=== PATIENT | male | born 1995 | race Caucasian/White ===

== ENCOUNTER 2021-11-02 15:31 | Emergency (ER) | payer OTHER, SELFPAY ==
[2021-11-02] VITALS (10 sets, daily range): BP systolic 118–140; BP diastolic 63–91; PULSE 74–89; RESP 11–28; TEMP 36.8; O2SAT 99–100
[2021-11-02 16:17] LABS: Basophils Absolute Auto 0.1 K/mm3 (0.0-0.1); Basophils Percent Auto 0.5 % (0.2-1.2); Eosinophils Absolute Auto 0.1 K/mm3 (0-0.3); Eosinophils Percent Auto 0.9 % (0-4.4); Hematocrit 46.2 % (42.0-52.0); Hemoglobin 15.9 g/dL (14.0-18.0); Immature Granulocyte Absolute 0.06 K/mm3 (0.00-0.031); Immature Granulocyte Percent A 0.4 % (0-0.5); Lymphocytes Absolute Auto 1.65 K/mm3 (0.9-3.2); Lymphocytes Percent Auto 11.4 % (18.3-44.2); Mean Corpuscular HGB Conc 34.4 g/dl (32-36); Mean Corpuscular Hemoglobin 30.9 pg (26-34); Mean Corpuscular Volume 89.7 fl (80-100); Monocytes Absolute Auto 0.9 K/mm3 (0.1-0.6); Neutrophils Absolute Auto 11.6 K/mm3 (1.3-6.7); Neutrophils Percent Auto 80.8 % (45.5-73.1); Platelet Count Result 214 k/mm3 (150-375); Red Blood Count 5.15 M/mm3 (4.6-6.20); Red Cell Distribution Width 12.2 % (11.5-14.5); White Blood Count 14.4 K/mm3 (4.5-10.0)
[2021-11-02 16:28] LABS: Alanine Aminotransferase 15 U/L (6-50); Albumin Level 4.8 g/dL (3.5-5.1); Alkaline Phosphatase 103 U/L (38-126); Anion Gap 8 mmol/L (8-16); Aspartate Amino Transferase 20 U/L (17-59); Bilirubin,Total 0.6 mg/dL (0.2-1.3); Blood Urea Nitrogen 13 mg/dL (9-20); Calcium 9.1 mg/dL (8.4-10.2); Carbon Dioxide 22 mmol/L (22-30); Chloride 106 mmol/L (98-107); Creatine Kinase 87 U/L (55-170); Estimated CRCL calculation 108 ml/min; Estimated Glomerular Filt Rate > 60; Glucose 97 mg/dL (65-110); Potassium 3.2 mmol/L (3.4-5.0); Sodium 136 mmol/L (137-145)
--- NOTE | 2021-11-02 17:00 | ED.GENADULT ---
HPI - General Adult General Chief complaint: Environmental Exposure Stated complaint: Heat Exhaustion Time Seen by Provider: 11/02/21 16:58 Source: patient Mode of arrival: EMS Limitations: no limitations History of Present Illness HPI narrative: Patient is a 25-year-old male who presents the ED, via EMS with report of heat exhaustion. Patient reports that he began working outside in the sun today around 7 AM. He was up on scaffolding doing work. He does report he drank around 4 bottles of water throughout the day but felt like he was not prepared to be out in the sun that long. Today's temperatures were greater than 90 ?F. Around 2:30 PM, he began to feel tingling in his hands with patient's muscle cramping. He also reported having diaphoresis, dizziness, and weakness at that time. He states his coworkers made him drink a bunch of water at once when he began feeling sick and he did vomit the water back up. He denied having any nausea or any episodes of vomiting since then. He did have a mild headache after vomiting but denies any currently. EMS was called who initiated IV fluids in route and placed ice on patient's back. Upon my evaluation, patient is feeling much better. He states he was able to rest in the ED and did take a small nap. He denies any symptoms currently. He has felt well over the past several days and denies any recent fever, cough, cold symptoms, abdominal pain, urinary symptoms. Related Data Allergies Allergy/AdvReac Type Severity Reaction Status Date / Time No Known Allergies Allergy Verified 11/02/21 15:35 Review of Systems Review of Systems: CONSTITUTIONAL: Reports diaphoresis. Denies fever. ENT: Denies rhinorrhea, congestion, sore throat. CARDIOVASCULAR: Denies chest pain. RESPIRATORY: Denies cough or dyspnea. GASTROINTESTINAL: Reports vomiting. Denies abdominal pain, nausea, or diarrhea. GENITOURINARY: Denies dysuria or hematuria. MUSCULOSKELETAL: Reports muscle cramping. Denies back pain. NEUROLOGIC: Reports dizziness, weakness, tingling in hands, SCHAEFER (all resolved). All systems reviewed & are unremarkable except as noted in HPI and below PMFSH Past Medical History Medical History (Updated 11/02/21 @ 17:36 by Micki Lobato PA-C) No pertinent past medical history Surgical History Surgical History (Updated 11/02/21 @ 17:27 by Micki Lobato PA-C) No pertinent past surgical history Social History Social History (Updated 11/02/21 @ 17:27 by Micki Lobato PA-C) Smoking status: Current every day smoker Substance use type: marijuana Exam Narrative: GENERAL: Well appearing, well-nourished, non-toxic, in no acute distress. HEAD: Normocephalic, atraumatic. EYES: PERRL/EOMI, conjunctivae clear bilaterally. THROAT: Pharynx normal, no erythema or exudate. MM moist. NECK: Supple. No adenopathy, no masses. RESPIRATORY: Airway patent, respirations nonlabored. Clear to auscultation bilaterally, no rales, rhonchi, wheezing. CARDIOVASCULAR: Regular rate and rhythm without murmurs, rubs, or gallops. Radial pulses 2+ and equal bilaterally. ABDOMINAL: Soft, no tenderness to palpation in any quadrants, nondistended, no hepatosplenomegaly. Normoactive BS. MUSCULOSKELETAL: Moves all extremities. Strength/ROM intact without gross deformities or TTP. No edema. No calf tenderness. SKIN: Warm, dry, superficial 1st degree sun burn to posterior neck and bilateral facial cheeks. NEURO: A&O X3. Speech clear. Cranial nerves II-XII grossly intact. Steady gait. No ataxic movements. PSYCHIATRIC: Appropriate mood and affect. Normal interaction. Course Vital Signs Vital signs: Vital Signs Temperature 98.2 F 11/02/21 15:31 Pulse Rate 86 11/02/21 15:31 Respiratory Rate 16 11/02/21 15:31 Blood Pressure 128/67 11/02/21 15:31 Pulse Oximetry 100 11/02/21 15:31 Temperature 98.2 F 11/02/21 15:31 Pulse Rate 74 11/02/21 18:10 Respiratory Rate 15 11/02/21 18:10 Blood Pressure 140/86 05
[2021-11-02 17:55] LABS: Appearance Urine Clear (Clear); Bilirubin Urine 1+ (Negative); Blood Urine Negative (Negative); Color Urine Yellow (Yellow); Glucose Urine UA Negative (Negative); Ketones Urine Trace mg/dL (Negative); Leukocyte Esterase Ur Negative LEU/UL (Negative); Nitrate Urine Negative (Negative); Protein Urine 1+ mg/dL (Negative); Specific Grav Ur >= 1.030 (1.001-1.035); Urobilinogen Urine 0.2 mg/dL (<2.0); pH Urine 5.5 (5.0-9.0)
[2021-11-02] MEDS: POTASSIUM CHLORIDE 20 MEQ TABLET 40 MEQ PO (18:01)
[2021-11-02 18:03] LABS: Mucus Urine Heavy /lpf; Squamous Epithelial Cell Urine Few /hpf (Few)
[2021-11-02 18:40] LABS: Add Urine Microscopic? YES
== END 2021-11-02 18:27 | disposition home or self-care (01) ==
PROVIDERS: Physician Assistant; Emergency Provider Emergency Medicine
DX: T67.2XXA Heat cramp, initial encounter (principal); F17.200 Nicotine dependence, unspecified, uncomplicated
CPT/HCPCS: 36415; 80053; 81001; 82550; 85025; 99283; A9270

== ENCOUNTER 2024-10-01 01:58 | Emergency (ER) | payer SELFPAY ==
--- OUTSIDE RECORDS SUMMARY | 2024-10-01 02:00 | XMS_ITS | Clinical Summary ---
Author Organization [facility] Address [address] [place] [id number] Care Team Providers Care Music Specialist Name Role Phone None, Provider MD Primary Care Provider Unavaila ble Allergies No known active allergies Medications No known medications Immunizations Name Administration Dates Next Due Tdap (Boostrix) 07/14/2023 Family History Medical History Relation Comments Hypertension Father No Known Problems Mother Relation Status Comments Father Alive Mother Alive Social History Tobacco Use Types Packs/Day Years Used Date Smoking Tobacco: Every Day Cigarettes Smokeless Tobacco: Never Tobacco Cessation:Ready to Q uit: Not Asked; Counseling Given: Not Answered Alcohol Use Standard Drinks/Week Comments Yes 0 (1 standard drink = 0.6 oz pur e alcohol) weekends Sex and Gender Information Value Date Recorded Sex Assigned at Not on file 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 Gender Identity Not on file Sexual Orientation Not on file Last Filed Vital Signs Vital Sign Reading Time Taken Comments Blood Pressure 150/82 03/25/2024 10:12 AM CDT Pulse 68 03/25/2024 10:12 AM CDT Temperature 36.3 C (97.4 F) 03/25/2024 10:12 AM CDT Respiratory Rate 16 03/25/2024 10:12 AM CDT Oxygen Saturation 100% 03/25/2024 10:12 AM CDT Inhaled Oxygen Concentration - - Weight 108 kg (238 lb) 03/25/2024 10:12 AM CDT Height 182.9 cm (6') 03/25/2024 10:12 AM CDT Body Mass Index 32.28 03/25/2024 10:12 AM CDT Plan of Treatment Health Maintenance Due Date Last Done Comments Annual Physical 11/25/1999 Pneumococcal Vaccine: Pediatrics (0 to 5 Years) and At-Risk Patients (6 to 64 Years) (1 of 2 - PCV) 2002 Hepatitis C 2014 Hepatitis B Vaccines (1 of 3 - 19+ 3-dose series) 11/25/2015 COVID-19 Vaccine (1 - 2023- season) 2024 DTaP, Tdap and Td Vaccines (6 - Td or Tdap) 07/14/2033 07/14/2023, 10/15/2001, 08/14/2001, Additional history exists Meningococcal Vaccine Completed 01/28/2015 HPV Vaccines Aged Out No longer eligi ble based on patient's age to complete this topic Meningococcal B Vaccine Aged Out No l onger eligible based on patient's age to complete this topic RSV Immunizations Under 20 Months Aged Out No longer eligible based on patient's age to complete this topic Care Teams Music Specialist Relationship Specialty Start Date End Date None, Provider, PCP - General 01/27/21
--- NOTE | 2024-10-01 02:06 | ECG_ITS ---
Test Date: 2024-10-01 02:11:41 Measurements Intervals [place] Rate: 93 P: 34 TN: 148 QRS: 19 QRSD: 117 T: 41 QT: 377 QTc: 469 Interpretive Statements SINUS RHYTHM INTRAVENTRICULAR CONDUCTION DELAY BORDERLINE ECG No previous ECG available for comparison Electronically Signed On 10-01-2024 06:24:42 CDT by Al Morales D.O.
--- NOTE | 2024-10-01 02:07 | ED_ITS ---
HPI - Overdose General Chief Complaint: Unspecified Stated Complaint: Polysubstance Use Time Seen by Provider: 10/01/24 02:08 Source: patient Mode of arrival: ambulatory Limitations: no limitations History of Present Illness HPI Narrative: Patient is a 28-year-old male with 1 g of cocaine ingestion this evening and now having panic and anxiety as well as concerns for overdose. He got drugs from a different dealer this evening and is not sure what was mixed into the drugs. Besides being anxious he does not have any other symptoms. He does have slight chest pain earlier that resolved at this time. complaint: accidental overdose ( More so side effect of the drug than an accidental overdose) Onset (ago): day(s) ( 1) Intent: other ( patient was having fun and got cocaine this evening with his marijuana) How Overdose Was Discovered: other ( no particular overdose was noted) Associated symptoms: paranoia, palpitations and other ( chest pain) Treatments Prior to Arrival: none Related Data Home Medications ?Medication ?Instructions ?Recorded ?Confirmed ?Last Taken ?Type No Home Medications 10/01/24 10/01/24 Unknown History Allergies Allergy/AdvReac Type Severity Reaction Status Date / Time No Known Allergies Allergy Verified 10/01/24 02:23 Review of Systems 2 Review of Systems: All systems reviewed & are unremarkable except as noted in HPI and below Constitutional: Constitutional: Reports no additional constitutional complaints Eyes: Eyes: Reports no additional eye complaints ENT: Reports system reviewed and no additional complaints, except as documented Cardiovascular: Cardiovascular: Reports no additional cardiovascular complaints Respiratory: Respiratory: Reports no additional respiratory complaints Gastrointestinal: Gastrointestinal: Reports no additional gastrointestinal complaints Genitourinary: Genitourinary: Reports no additional male genitourinary complaints Musculoskeletal: Musculoskeletal: Reports no additional musculoskeletal complaints Integumentary/Breasts: Skin/Breast: Reports system reviewed and no additional complaints, except as docu Neurologic: Reports system reviewed and no additional complaints, except as documented Psychiatric: Psychiatric: Reports no additional psychiatric complaints Endocrine: Endocrine: Reports no additional endocrine complaints Hematologic/Lymphatic: Hematologic/Lymphatic: Reports no additional hematologic/lymphatic complaints Allergic/Immunologic: Allergic/Immunologic: Reports no additional allergic/immunologic complaints PMFSH Past Medical History Medical History No pertinent past medical history Surgical History Surgical History No pertinent past surgical history Social History Social History Smoking status: Current every day smoker Substance use type: marijuana Exam 2 Const: Nutritional Appearance: well nourished Orientation/consciousness: p atient oriented x3 Limitations: no limitations Other: patient is distressed with panic and worries about overdose with cocaine; he was better after we discussed the situation HENMT: Head: normal to inspection Ears: external ears normal F taylor/Nose/Sinus: Normal external nose present Eyes: Conjunctivae: conjunctivae normal Pupils: Equal, round and reactive pupils present EOM: EOMs intact bilaterally Neck: Neck: normal visual inspection Chest: Chest palpation & inspection: normal inspection of the chest Resp: Effort & Inspection: normal respiratory effort and not labored A uscultation: clear to auscultation bilaterally and no crackles Cardio: Rate: regular rate Rhythm: regular rhythm Heart sounds: no murmurs GI: Inspection: non-distended GI Palp: Yes Soft to palpation and No Tenderness to palpation present (GI) Auscultation: normal bowel sounds : General: Yes bladder normal to palpation Back/Spine/Pelvis: Back: no CVA tenderness Skin: General skin exam: normal color Rashes: no rashes Wounds: no wounds Neuro: General: patient oriented x3, moves all extremities, no meningeal signs, no focal motor deficits and CN's II-XI intact bilaterally Cranial nerves: Yes Nystagmus not present Speech: normal speech Gait exam (Neuro): Normal gait present Other: no focal neurological deficits Extrem: General: normal to inspection Psych: Mental Status: mental status grossly normal Affect: normal affect Attitude: cooperative Course Vital Signs Vital signs: Vital Signs Temperature 37.0 C 10/01/24 02:39 Pulse Rate 86 10/01/24 02:39 Respiratory Rate 21 H 10/01/24 02:39 Blood Pressure 175/106 H 10/01/24 02:39 Pulse Oximetry 100 10/01/24 02:39 Oxygen Delivery Room Air 10/01/24 02:39 Temperature 37.0 C 10/01/24 02:39 Pulse Rate 86 10/01/24 02:39 Respiratory Rate 21 H 10/01/24 02:39 Blood Pressure 175/106 H 10/01/24 02:39 Pulse Oximetry 100 10/01/24 02:39 Oxygen Delivery Room Air 10/01/24 02:39 MDM - Overdose MDM Narrative Medical decision making narrative: patient is a 28-year-old male with cocaine ingestion prior to arrival this evening and panic with anxiety and concerns for overdose. Reassurance given to the patient at this time. EKG is normal. Will have labs checked and a urinalysis checked. Current situation as cocaine intoxication / side effects. No active concern for overdose. Lab Data Attestation: I reviewed the patient's lab results. 10/01/24 02:25 10/01/24 02:25 Labs: Lab Results 10/01/24 Range/Units 02:25 WBC 8.6 (4.8-10.8) K/mm3 RBC 5.21 (4.70-6.10) M/mm3 Hgb 15.7 (14.0-18.0) g/dL Hct 46.2 (40.0-54.0) % MCV 88.7 (78.0-102.0) fL MCH 30.1 (27.0-31.0) pg MCHC 34.0 (32-36) g/dL RDW 12.1 (11.6-14.4) % Plt Count 241 (150-420) K/mm3 MPV 9.6 (8.7-11.0) fl Immature Gran % (Auto) 0.7 H (0.0-0.0) % Neut % (Auto) 78.3 H (50.0-70.0) % Lymph % (Auto) 15.5 L (18.0-42.0) % Mcminn % (Auto) 4.3 (2.0-11.0) % Eos % (Auto) 0.7 L (1.0-6.0) % Baso % (Auto) 0.5 (0.0-1.0) % Lymph # (Auto) 1.34 (1.10-4.50) K/mm3 Mcminn # (Auto) 0.37 (0.10-0.90) K/mm3 Eos # (Auto) 0.06 (0.02-0.50) K/mm3 Baso # (Auto) 0.04 (0.00-0.10) K/mm3 Abs Immat Gran (auto) 0.06 H (0.00-0.00) K/mm3 Absolute Neuts (auto) 6.77 (1.70-7.20) K/mm3 Absolute Nucleated RBC 0.00 (0.00-0.00) K/mm3 Nucleated RBC % 0.0 (0-0.0) % Sodium 138 (136-145) mmol/L Potassium 3.4 L (3.5-5.1) mmol/L Chloride 100 (98-108) mmol/L Carbon Dioxide 23 (21-32) mmol/L Anion Gap 15 H (4-12) mmol/L BUN 13 (7-18) mg/dL Creatinine 1.26 (0.70-1.30) mg/dL Estim Creat Clear Calc 100 ml/min Estimated GFR > 60 (59 - ) Glucose 201 H (70-99) mg/dL Calculated Osmolality 292 (285-295) mOsm/kg Calcium 9.0 (8.5-10.1) mg/dL Total Bilirubin 0.4 (0.00-1.00) mg/dL AST 23 (15-37) U/L ALT 36 (16-63) U/L Alkaline Phosphatase 138 H (46-116) U/L Troponin I < 4.0 (0.00-60.4) ng/L Total Protein 8.1 (6.4-8.2) g/dL Albumin 4.2 (3.4-5.0) g/dL Urine Opiates Screen Negative (Negative) Urine Methadone Screen Negative (Negative) Ur Barbiturates Screen Negative (Negative) Ur Phencyclidine Scrn Negative (Negative) Ur Amphetamine Screen Negative (Negative) U Benzodiazepines Scrn Negative (Negative) Urine Cocaine Screen Positive A (Negative) U Cannabinoids Screen Positive A (Negative) Ethyl Alcohol < 3 (0-6) mg/dL ECG Data EKG #1: Attestation: I personally reviewed and interpreted this ECG as follows: ECG completion date: 10/01/24 ECG completion time: 02:42 EKG Interpretation: normal rate, sinus rhythm, no ectopy, no ST changes, normal QRS, normal QT, NL axis and no acute changes Discharge Plan Discharge Clinical Impression: Cocaine intoxication Qualifiers: Complication of substance-induced condition: with unspecified complication Q ualified Code(s): F14.929 - Cocaine use, unspecified with intoxication, unspecified Patient Disposition: Home Condition: Improved Instructions: Cocaine Use Disorder (ED) Patient Language: Urugu[place] Prescriptions: No Action No Home Medications Follow-up/Referrals: Bryan Ellsworth MD [Primary Care Provider] - Time of Disposition: 03:09
--- OUTSIDE RECORDS SUMMARY | 2024-10-01 02:24 | XMS_ITS | Clinical Summary ---
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
[2024-10-01 02:28] LABS: Basophils Absolute Auto 0.04 K/mm3 (0.00-0.10); Basophils Percent Auto 0.5 % (0.0-1.0); Eosinophils Absolute Auto 0.06 K/mm3 (0.02-0.50); Eosinophils Percent Auto 0.7 % (1.0-6.0); Hematocrit 46.2 % (40.0-54.0); Hemoglobin 15.7 g/dL (14.0-18.0); Immature Granulocyte Absolute 0.06 K/mm3 (0.00-0.00); Immature Granulocyte Percent A 0.7 % (0.0-0.0); Lymphocytes Absolute Auto 1.34 K/mm3 (1.10-4.50); Lymphocytes Percent Auto 15.5 % (18.0-42.0); Mean Corpuscular Hemoglobin 30.1 pg (27.0-31.0); Mean Corpuscular Volume 88.7 fL (78.0-102.0); Mean Platelet Volume 9.6 fl (8.7-11.0); Monocytes Absolute Auto 0.37 K/mm3 (0.10-0.90); Monocytes Percent Auto 4.3 % (2.0-11.0); Neutrophils Absolute Auto 6.77 K/mm3 (1.70-7.20); Neutrophils Percent Auto 78.3 % (50.0-70.0); Platelet Count Result 241 K/mm3 (150-420); Red Blood Count 5.21 M/mm3 (4.70-6.10); Red Cell Distribution Width 12.1 % (11.6-14.4); White Blood Count 8.6 K/mm3 (4.8-10.8)
[2024-10-01 02:37] LABS: Amphetamine Screen Urine Negative (Negative); Barbiturate Screen Urine Negative (Negative); Benzodiazepines Screen Urine Negative (Negative); Cannabinoid Screen Urine Positive (Negative); Cocaine Screen Urine Positive (Negative); Methadone Screen Urine Negative (Negative); Opiate Screen Urine Negative (Negative); Phencyclidine Screen Urine Negative (Negative)
[2024-10-01 02:39] VITALS: BP 175/106; PULSE 86; RESP 21; TEMP 37; O2SAT 100
[2024-10-01 02:49] LABS: Alanine Aminotransferase 36 U/L (16-63); Albumin Level 4.2 g/dL (3.4-5.0); Alkaline Phosphatase 138 U/L (46-116); Anion Gap 15 mmol/L (4-12); Aspartate Amino Transferase 23 U/L (15-37); Bilirubin,Total 0.4 mg/dL (0.00-1.00); Blood Urea Nitrogen 13 mg/dL (7-18); Carbon Dioxide 23 mmol/L (21-32); Chloride 100 mmol/L (98-108); Estimated CRCL calculation 100 ml/min; Estimated Glomerular Filt Rate > 60; Glucose 201 mg/dL (70-99); Osmolality Calculated 292 mOsm/kg (285-295); Potassium 3.4 mmol/L (3.5-5.1); Sodium 138 mmol/L (136-145); Total Protein 8.1 g/dL (6.4-8.2)
[2024-10-01 02:50] LABS: Ethanol < 3 mg/dL (0-6); Troponin I < 4.0 ng/L (0.00-60.4)
[2024-10-01] MEDS: POTASSIUM CHLORIDE 20 MEQ ER TABLET PO (03:07)
[2024-10-01 03:27] VITALS: BP 166/93; PULSE 97; RESP 20; TEMP 36.8; O2SAT 98
== END 2024-10-01 03:30 | disposition home or self-care (01) ==
PROVIDERS: Emergency Provider Emergency Medicine; PCP Internal Medicine
DX: F14.929 Cocaine use, unspecified with intoxication, unspecified (principal); F17.200 Nicotine dependence, unspecified, uncomplicated
CPT/HCPCS: 36415; 80053; 80307; 82077; 84484; 85025; 93005; 99284; A9270